=== PATIENT | male | born 1940 | race Caucasian/White ===

== ENCOUNTER 2016-05-13 09:43 | Emergency (ER) | payer OTHER, MEDICARE ==
[~2016-05-13] VITALS: Ht 167.6 cm; Wt 81.6 kg
[2016-05-13 09:55] VITALS: BP 167/58
[2016-05-13] MEDS ORDERED: LISINOPRIL40 M1 PO (10:58)
[2016-05-13] MEDS ORDERED: METOPROLOL TART25 M1 PO (10:59)
[2016-05-13] MEDS ORDERED: ATORVASTATIN CA40 M1 PO (10:59)
[2016-05-13] MEDS ORDERED: ALLOPURINOL300 M1 PO (10:59)
[2016-05-13] MEDS ORDERED: AMLODIPINE BESYL5 M1 PO (11:00)
[2016-05-13] MEDS ORDERED: XARELTO20 M2 PO (11:00)
[2016-05-13] MEDS ORDERED: ASPIRIN81 M4 PO (11:00)
--- NOTE | 2016-05-13 11:02 | ED GI/GU/ABDOMINAL COMPLAINT ---
History of Present Illness General Chief Complaint: Abdominal Pain/Flank Pain Stated Complaint: LT LOWER ABDOMINAL PAIN X 2 DAYS Source: patient, Exam Limitations: no limitations Vital Signs & Intake/Output Vital Signs & Intake/Output Vital Signs Date Time Temp Pulse Resp B/P Pulse O2 O2 Flow FiO2 Ox Delivery Rate 05/13 0955 96.5 59 16 167/58 99 Room Air Allergies Coded Allergies: clopidogrel (UNKNOWN 05/13/16) rosuvastatin (UNKNOWN 05/13/16) ticlopidine (UNKNOWN 05/13/16) Reconcile Medications Allopurinol 300 MG TABLET 1 TAB PO QPM GOUT (Reported) Amlodipine Besylate 5 MG TABLET 1 TAB PO DAILY HEART (Reported) Aspirin (Aspirin*) 81 MG TAB.CHEW 1 TAB PO DAILY HEART HEALTH (Reported) Atorvastatin Calcium 40 MG TABLET 1 TAB PO QPM CHOLESTEROL (Reported) Lisinopril 40 MG TABLET 1 TAB PO DAILY HEART (Reported) Metoprolol Tartrate 25 MG TABLET 0.5 TAB PO BID HEART (Reported) Rivaroxaban (Xarelto) 20 MG TABLET 1 TAB PO QPM BLOOD THINNER (Reported) with food Triage Note: PT HERE WITH C/O LOWER ABD PAIN LEFT SIDE STATES HURTS WORSE WHEN HE PUSHES ON IT. PT REPORTS GETTING WORSE OVER THE PAST FEW DAYS. PT STATES HE WAS SHOVELING SNOW NOT SURE IF HE PULLED SOMETHING. Triage Nurses Notes Reviewed? yes HPI: Patient presents for evaluation of gradual onset of a constant aching left lower quadrant abdominal pain that began 2 days ago. Patient denies any associated fever vomiting diarrhea dysuria melena or bloody bowel movements. Patient's pain has worsened over yesterday and today. He has not tried any medications to this point. Past History Travel History Traveled to [place] past 21 day No Medical History Any Pertinent Medical History? see below for history Cardiovascular: hypertension, hyperlipidemia Renal: GOUT Cancer(s): PROSTATE CA Pneumonia Vaccine: 02/26/09 Influenza Vaccine: 11/27/11 Surgical History Surgical History: non-contributory Psychosocial History Who do you live with Family What is your primary language Kiswahili Tobacco Use: Quit >30 days ago ETOH Use: occasional use Illicit Drug Use: denies illicit drug use Family History Hx Contributory? No Review of Systems Review of Systems Constitutional: Reports: no symptoms. EENTM: Reports: no symptoms. Respiratory: Reports: no symptoms. Cardiovascular: Reports: no symptoms. GI: Reports: see HPI. Genitourinary: Reports: no symptoms. Musculoskeletal: Reports: no symptoms. Skin: Reports: no symptoms. Neurological/Psychological: Reports: no symptoms. Hematologic/Endocrine: Reports: no symptoms. Immunologic/Allergic: Reports: no symptoms. All Other Systems: Reviewed and Negative Physical Exam Physical Exam Gastrointestinal: see below Comments: Gen.: Well-nourished, well-developed, no acute respiratory distress. Head: Normocephalic, atraumatic. Eyes: Normal inspection bilaterally Ears: Normal inspection bilaterally Nose: Normal inspection Throat/mouth : Moist mucosa Neck: Supple, full range of motion, no goiter Heart: Regular rate and rhythm, no murmurs rubs or gallops Lungs: Clear to auscultation bilaterally with normal air entry Chest: Nontender Back: Normal range of motion Abdomen: Soft, left lower quadrant abdominal tenderness with brief voluntary guarding but no rebound, nondistended, normal bowel sounds Extremities: Normal range of motion grossly, equal radial pulses, no cyanosis clubbing or edema Neurologic: Cranial nerves grossly intact, speech is clear Skin: warm and dry Psychiatric: Calm, cooperative, no apparent delusions or hallucinations Core Measures ACS in differential dx? No Severe Sepsis Present: No Septic Shock Present: No Progress Differential Diagnosis: diverticulitis, renal colic Plan of Care: see d/c instructions Initial ED EKG: none Comments: Patient denies history of diverticulosis or diverticulitis. I've reviewed his prior imaging studies here [facility] and he has had no CAT scans or colonoscopies documented. Our CAT scan is currently nonoperational and we are on CAT scan diversion. The patient has declined transfer to [facility] for CAT scan. However the patient's clinical presentation is very consistent with diverticulitis (he admits to eating strawberries blueberries and granola on a frequent basis). His abdominal examination is not consistent with a perforated viscus at this time. Plan presumptive treatment of acute diverticulitis with pain medication and antibiotics. Departure Departure Disposition: HOME OR SELF CARE Condition: Stable Clinical Impression Primary Impression: Diverticulitis Qualifiers: Diverticulitis site: large intestine Diverticulitis bleeding: without bleeding Diverticulitis complication: without perforation or abscess Qualified Code: K57.32 - Diverticulitis of large intestine without perforation or abscess without bleeding Referrals: JHONNY ROUSSEAU,DENNIS Shah (PCP/Family) Additional Instructions: Cipro and Flagyl as prescribed. Take ibuprofen (600 mg every 6 hours) plus or minus Tylenol as needed for pain. If this does not control ear pain the and activated the tramadol prescription provided. Follow-up with your primary care physician in 48 hours for reevaluation. Return if any concerns or sudden worsening. Thank you for choosing the [facility] Emergency Department for your care. It was a pleasure to serve you today. Alvaro Ramirez M.D. [facility] Departure Forms: Customer Survey General Discharge Information Prescriptions: Current Visit Scripts Ciprofloxacin HCl (Cipro) 1 TAB PO BID #20 TAB Metronidazole (Flagyl) 1 TAB PO Q6 #40 TAB Tramadol HCl (Ultram) 1-2 TAB PO Q6P PRN PAIN #20 TAB
[2016-05-13] MEDS ORDERED: CEFADROXIL500 M1 PO (11:04)
[2016-05-13] MEDS ORDERED: CIPRO500 M1 PO (11:34)
[2016-05-13] MEDS ORDERED: ULTRAM50 M1 PO (11:34)
[2016-05-13] MEDS ORDERED: FLAGYL500 MG PO (11:34)
== END 2016-05-13 11:53 ==
LOC: ERH 09:43
DX: K57.92 Diverticulitis of intestine, part unspecified, without perforation or abscess without bleeding (principal)